=== PATIENT | male | born 1990 | race Caucasian/White ===

== ENCOUNTER 2022-07-21 03:23 | Emergency (ER) | payer SELFPAY ==
[~2022-07-21] VITALS: Ht 175.2 cm; Wt 114.3 kg
== END 2022-07-21 05:23 | disposition home or self-care (01) ==
LOC: ED 03:23
DX: T39.1X1A Poisoning by 4-Aminophenol derivatives, accidental (unintentional), initial encounter (principal); R40.20 Unspecified coma; Y92.89 Other specified places as the place of occurrence of the external cause